=== PATIENT | female | born 1955 | race Hispanic/Latino ===

== ENCOUNTER → 2020-09-10 | Day surgery (SDC) | payer MEDICARE ==
[2020-09-06 13:09] LABS: BASOPHILS # (AUTO) 0.1 (0.0-0.1); BASOPHILS % 0.7 % (0.0-1.0); EOSINOPHILS # (AUTO) 0.1 (0.0-0.4); EOSINOPHILS % 1.2 % (0.0-6.0); HEMATOCRIT 44.8 % (34.2-44.1); HEMOGLOBIN 14.4 g/dL (12.0-16.0); LYMPHOCYTES # (AUTO) 2.4 (1.0-3.2); LYMPHOCYTES % 32.1 % (18.0-39.1); MEAN CORPUSCULAR HGB CONC 32.1 g/dL (31-35); MEAN CORPUSCULAR VOLUME 87.2 fL (81-99); MONOCYTES # (AUTO) 0.5 (0.2-0.8); MONOCYTES % 7.2 % (4.4-11.3); NEUTROPHILS # (AUTO) 4.3 (2.1-6.9); NEUTROPHILS % 58.4 % (38.7-80.0); PLATELET COUNT 227 x10e3/uL (140-360); RED BLOOD COUNT 5.14 x10e6/uL (3.6-5.1); RED CELL DISTRIBUTION WIDTH 13.2 % (11.7-14.4)
[2020-09-06 13:42] LABS: BLOOD UREA NITROGEN 19 mg/dL (7-26); BUN/CREATININE RATIO 25 (6-25); CALCIUM 9.3 mg/dL (8.4-10.2); CARBON DIOXIDE 23 mmol/L (22-29); CHLORIDE 105 mmol/L (98-107); CREATININE, SERUM 0.75 mg/dL (0.57-1.11); EST GLOMERULAR FILTRATION RATE > 60 ML/MIN (60-); GLUCOSE 169 mg/dL (74-118); SODIUM 139 mmol/L (136-145)
--- NOTE | 2020-09-06 14:26 | Diagnostic Imaging Report ---
EXAMINATION: CHEST 2 VIEWS INDICATION: Pre-operative COMPARISON: None FINDINGS: LINES/TUBES:None LUNGS:The lungs are well-inflated. No focal consolidation or pulmonary edema. PLEURA:No pleural effusion or pneumothorax. MEDIASTINUM:The cardiomediastinal silhouette appears normal in size and shape. Atherosclerotic calcifications of the thoracic aorta. BONES/SOFT TISSUES:No acute osseous injury. ABDOMEN:No free air under the diaphragm. Status post cholecystectomy. IMPRESSION: No focal pneumonia or pulmonary edema. Signed by: Norma Butler MD on 09/06/2020 2:23 PM
[~2020-09-10] MED LIST: ATORVASTATIN CA20 MG PO; DEXAMETHASONE SOD PHOS INJ 4 MG/ML VIAL ONE; GLIMEPIRIDE2 MG PO; LIDOCAINE HCL 2% LOCAL INJ 5 ML SDV VIAL INJ ONE; METFORMIN HCL500 MG PO; MIDAZOLAM HCL 2 MG/2 ML VIAL ONE; ONDANSETRON HCL INJ 2MG/ML 2ML 2 MG/ML VIAL ONE; PROPOFOL IV EMULSION 10 MG/ML 20 ML VIAL ONE; PROTONIX20 MG PO; SEVOFLURANE INHAL SOLN 250 ML PEN BTL ONE
[2020-09-10 10:50] VITALS: BP 150/69
--- NOTE | 2020-09-20 21:55 | Operative Report ---
DATE OF PROCEDURE: 09/20/2020 SURGEON: Ashley Orellana MD BOMBSIGHT SPECIALIST: None. PROCEDURES PERFORMED: Dilation and curettage, hysteroscopy and hysteroscopic polypectomy. PREOPERATIVE DIAGNOSIS: Endometrial polyp. POSTOPERATIVE DIAGNOSIS: Endometrial polyp. SPECIMEN REMOVED: Endometrial polyp. ESTIMATED BLOOD LOSS: Minimal. FLUID DEFICIT: Zero mL. DESCRIPTION OF PROCEDURE: The patient was taken to the operating room, general anesthesia was administered without difficulty. The patient was prepped and draped in dorsal lithotomy position. A time-out was performed. Attention was turned to the perineum. Retractors were used to expose the cervix, which was grasped using a single tooth tenaculum and then sequentially dilated to accommodate the hysteroscope. The hysteroscope was inserted to the uterine cavity under direct visualization. The cavity was distended with normal saline. Two discreet uterine polyps were visualized at approximately 5 o' clock position in the lower uterine segment and near the opening of the right tubal ostia. A TruClear device was then used to perform polypectomy without complications. Fluid deficit was zero. The hysteroscope was removed from the uterus. All instruments removed from the vagina. The patient tolerated the procedure well. The patient was awoken from general anesthesia and transferred to the recovery room in stable condition. MD MAE Claire/MARKOL /[id number] MTDD
== END | disposition home or self-care (01) ==
LOC: OR 06:40
PROVIDERS: ATTEND Obstetrics & Gynecology
DX: N84.0 Polyp of corpus uteri (principal); E11.9 Type 2 diabetes mellitus without complications; K21.9 Gastro-esophageal reflux disease without esophagitis; E78.5 Hyperlipidemia, unspecified; Z01.810 Encounter for preprocedural cardiovascular examination; Z01.812 Encounter for preprocedural laboratory examination; Z01.818 Encounter for other preprocedural examination; Z20.828 Contact with and (suspected) exposure to other viral communicable diseases; Z79.84 Long term (current) use of oral hypoglycemic drugs
CPT/HCPCS: 36415 ×2; 58558; 71046; 80048; 82948; 85025; 88305; 93005; J1100; J2001; J2250; J2405; J2704; U0002